=== PATIENT | female | born 1965 | race Caucasian/White ===

== ENCOUNTER 2016-06-20 10:37 | Day surgery (SDC) | payer OTHER ==
[2016-06-20 10:43] VITALS: BMI 26.6
--- NOTE | 2016-06-20 11:01 | PDOC ---
History of Present Illness - General Chief Complaint: Pain, Acute Stated Complaint: ABD PAIN Time Seen by Provider: 06/20/16 10:38 History Source: Patient Exam Limitations: No Limitations - History of Present Illness Initial Comments: 06/20/16 10:56 This pt is a 50 yo F with no significant past medical who presents to the ER with a complaint of abdominal pain. She states her symptoms began yesterday afternoon. Pain described as shooting, located in the Right lower abdomen. Pain began while doing noting in particular. No exacerbating or alleviating factors She has not had symptoms like this in the past. Pain was initially intermittent, now it is more constant Pt denies diarrhea, pt has irregular bowel habits, passing flatus She denies dysuria, flank pain No history of fibroids or cysts ROS: GENERAL/CONSTITUTIONAL: No: fever, chills, weakness, loss of appetite. HEAD, EYES, EARS, NOSE AND THROAT: No: change in vision, ear pain, discharge, sore throat, throat swelling. CARDIOVASCULAR: No: chest pain, lightheadedness, palpitations, syncope RESPIRATORY: No: cough, shortness of breath, wheezing, hemoptysis, stridor. GASTROINTESTINAL: (+) abdominal pain No: nausea, vomiting, diarrhea GENITOURINARY: No: dysuria, hematuria, frequency, urgency, flank pain. MUSCULOSKELETAL: No: back pain, neck pain, joint pain, muscle swelling or pain SKIN: No: lesions, pallor, rash or easy bruising. NEUROLOGIC: No: headache, vertigo, paresthesias, weakness ENDOCRINE: No: unexplained weight gain or loss HEMATOLOGIC/LYMPHATIC: No: anemia, easy bleeding, swelling nodes. PHYSICAL EXAM GENERAL: The patient is in no acute distress. HEAD: Normal with no signs of trauma. EYES: PERRLA, EOMI, sclera anicteric, conjunctiva clear. ENT: Ears normal, nares patent, oropharynx clear without exudates. Moist mucous membranes. NECK: Normal range of motion, supple without lymphadenopathy, JVD, or masses. LUNGS: Breath sounds equal, clear to auscultation bilaterally. No wheezes, and no crackles. HEART:Regular rate and rhythm, normal S1 and S2 without murmur, rub or gallop. ABDOMEN: (+) tender to palpation right abdomen, Soft, normoactive bowel sounds. No guarding, no rebound. EXTREMITIES: Normal range of motion, no edema. No clubbing or cyanosis. No erythema, or tenderness. NEUROLOGICAL: Cranial nerves II through XII grossly intact. Normal speech. No focal neurological deficits. MUSCULOSKELETAL: Back non-tender to palpation, no CVA tenderness SKIN: Warm, Dry, normal turgor, no rashes or lesions noted. 06/20/16 11:02 Past History - Past Medical History Allergies/Adverse Reactions: Allergies Allergy/AdvReac Type Severity Reaction Status Date / Time No Known Allergies Allergy Verified 06/20/16 10:38 Home Medications: Ambulatory Orders NK [No Known Home Medication] 06/20/16 Other medical history: DENIES - Psycho/Social/Smoking Cessation Hx Suicidal Ideation: No Smoking History: Never smoked Have you smoked in the past 12 months: No Hx Alcohol Use: Yes Drug/Substance Use Hx: No Substance Use Type: Alcohol *Physical Exam - Vital Signs Last Vital Signs Temp Pulse Resp BP Pulse Ox 98.2 F 61 18 134/93 100 06/20/16 10:38 06/20/16 10:38 06/20/16 10:38 06/20/16 10:38 06/20/16 10:38 Heart Score/ECG Review #1 ECG reviewed & interpreted by me at: 14:46 General ECG Interpretation: Sinus Rhythm, Normal Rate, Normal Intervals, No acute ischemic changes ED Treatment Course - LABORATORY CBC & Chemistry Diagram: 06/20/16 11:00 06/20/16 11:00 Medical Decision Making - Medical Decision Making 06/20/16 11:06 DD: Appendicitis, colitis, enteritis, gastroenteritis, obstruction, cholecystitis, gastritis, gastric ulcer, diverticulitis Will do labs Will do CT abd and pelvis Will re assess 06/20/16 12:12 Laboratory Tests 06/20/16 11:00 WBC 5.7 Hgb 12.9 Hct 38.8 Plt Count 237 Laboratory Tests 06/20/16 06/20/16 11:00 11:00 Sodium 132 L Potassium 4.0 Chloride 100 Carbon Dioxide 28 Anion Gap 4 L BUN 16 Creatinine 0.7 Random Glucose 110 H Urine Blood 1+ H Urine Nitrite Negative Ur Leukocyte Esterase 2+ H 06/20/16 12:13 06/20/16 12:57 Laboratory Tests 06/20/16 11:00 Urine WBC 5-10 Ur Epithelial Cells Few Urine Bacteria Moderate Possible UTI Will prescribed Macrobid Awaiting CT 06/20/16 14:11 CT: Acute appendicitis Case reviewed with Dr Saldaña Will admit to his service Or: 3:30 - 4:[address] also shows thickened endometrium and renal hypodensities both of which require additional work up with US I have given pt a copy of her CT scan with these areas circled Once she is out of the hospital, pt can 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
[2016-06-20 11:25] LABS: BASOPHIL 0.7 % (0-2.0); EOSINOPHIL 2.3 % (0-4.5); MCH 27.2 pg (25.7-33.7); MCHC 33.1 g/dl (32.0-36.0); MEAN CELL VOLUME 82.2 fl (80-96); MEAN PLT VOLUME 8.1 fl (7.5-11.1); NEUTROPHILS 58.4 % (42.8-82.8); PLATELET COUNT 237 K/MM3 (134-434); RDW 11.9 % (11.6-15.6); WHITE BLOOD COUNT 5.7 K/mm3 (4.0-10.0)
[2016-06-20 11:26] LABS: URINE APPEARANCE Clear; URINE BILIRUBIN Negative (NEGATIVE); URINE GLUCOSE (UA) Negative (NEGATIVE); URINE KETONE Negative (NEGATIVE); URINE NITRITE Negative (NEGATIVE); URINE PROTEIN Trace (NEGATIVE); URINE UROBILINOGEN 1.0 E.U/dl (0.2-1.0)
[2016-06-20 11:36] LABS: ALBUMIN 4.3 g/dl (3.5-5.0); ALK PHOS 70 U/L (32-92); ANION GAP 4 (8-16); BILIRUBIN,TOTAL 0.8 mg/dl (0.2-1.0); CALCIUM 9.3 mg/dl (8.4-10.2); CO2 28 mmol/L (22-28); CREATININE 0.7 mg/dl (0.6-1.3); GLUCOSE,RANDOM 110 mg/dl (74-106); SGOT/AST 21 U/L (10-42); SGPT/ALT 15 U/L (10-40); TOT PROT 7.2 g/dl (6.4-8.3); URINE BLOOD 1+ (NEGATIVE); URINE COLOR YELLOW; URINE LEUK ESTERASE 2+ (NEGATIVE)
[2016-06-20 12:40] LABS: URINE BACTERIA MODERATE /hpf (NEGATIVE); URINE HYALINE CAST 0-3 /lpf
[2016-06-20] MEDS ORDERED: PIPERACILLIN/TAZOB 3.375 GM/50 ML PRE-DOCKED IVPB ONE (14:20)
[2016-06-20] MEDS ORDERED: PIPERACILLIN/TAZOBACTAM 3.375 GM VIAL IVPB ONE (14:26)
[2016-06-20] MEDS ORDERED: BUPIVACAINE HCL 0.25% 125 MG/50 ML VIAL ONE (14:35)
[2016-06-20 15:07] LABS: ACTIVATED PTT 31.9 SECONDS (24.0-38.9)
[2016-06-20 15:11] LABS: INR 1.12 (0.82-1.09); PROTHROMBIN TIME (PATIENT) 12.5 SEC (10.2-13.0)
[2016-06-20] MEDS ORDERED: PROPOFOL 20 ML ONE (15:27)
[2016-06-20] MEDS ORDERED: MIDAZOLAM HCL 2 MG/2 ML SINGLE DOSE VIAL ONE (15:27)
[2016-06-20] MEDS ORDERED: SUCCINYLCHOLINE CHLORIDE 200 MG/10 ML VIAL ONE (15:27)
[2016-06-20] MEDS ORDERED: oxyCODONE HCL 5 MG TABLET PO PRN (15:42)
[2016-06-20] MEDS ORDERED: PROMETHAZINE HCL 25 MG/1 ML VIAL IVPUSH PRN (15:42)
[2016-06-20] MEDS ORDERED: ONDANSETRON 4 MG/2 ML VIAL IVPUSH PRN (15:42)
[2016-06-20] MEDS ORDERED: LACTATED RINGERS SOLUTION 1,000 ML IV SCH (15:45)
[2016-06-20] MEDS ORDERED: ONDANSETRON 4 MG/2 ML VIAL ONE ×2 (16:40)
[2016-06-20] MEDS ORDERED: DEXAMETHASONE SOD PHOSPHATE 4 MG/1 ML VIAL ONE ×2 (16:40)
[2016-06-20] MEDS ORDERED: ROCURONIUM BROMIDE 50 MG/5 ML VIAL ONE (16:41)
[2016-06-20] MEDS ORDERED: NEOSTIGMINE METHYLSULFATE 0.5 MG/ML - 10 ML MDV ONE (17:00)
[2016-06-20] MEDS ORDERED: GLYCOPYRROLATE 0.2 MG/1 ML VIAL ONE ×2 (17:01)
[2016-06-20] MEDS ORDERED: BUPIVACAINE HCL/PF 2.5 MG/ML - 30 ML VIAL IJ ONE (17:03)
[2016-06-20] MEDS ORDERED: KETOROLAC TROMETHAMINE 30 MG/1 ML VIAL ONE (17:03)
--- NOTE | 2016-06-20 17:28 | HP ---
Satellite [facility] - Chief Complaint History of Present Illness: 50 yr old female presents with 24 hx of RLQ abdominal pain associated with nausea History Source: Patient Limitations to Obtaining History: No Limitations - Past Medical History Allergies/Adverse Reactions: Allergies Allergy/AdvReac Type Severity Reaction Status Date / Time No Known Allergies Allergy Verified 06/20/16 10:38 - Current Medications Current Medications: Home Medications Medication Instructions Recorded NK [No Known Home Medication] 06/20/16 Satellite Physical Exam - Physical Examination Vital Signs: Vital Signs Period Temp Pulse Resp BP Sys/Brunson Pulse Ox Last 24 Hr 98.2 F-98.4 F 61-69 16-18 119-134/77-93 97-100 General Appearance: Well Nourished, Well Developed, Alert & Oriented x3 ENT: Clear, No masses Lung: Clear to auscultation Heart: Regular rate & rhythm Abdomen: Soft, Other (RLQ tenderness to palpation with guarding) Extremities: No edema, No tenderness/swelling Satellite Impression/Plan - Impression/Plan Impression: acute appendicittis Operative Procedure: laparoscopic appendectomy Date to be Performed: 06/20/16
--- NOTE | 2016-06-20 17:30 | OP ---
Operative Note - Note: Operative Date: 06/20/16 Pre-Operative Diagnosis: acute appendicittis Operation: lap. appendectomy Findings: early appendicittis Post-Operative Diagnosis: Same as Pre-op Surgeon: Wild Lerma Anesthesia: General Specimens Removed: appendix Estimated Blood Loss (mls): 5
[2016-06-20] MEDS ORDERED: KETOROLAC TROMETHAMINE 15 MG/ML VIAL IVPUSH PRN (17:34)
[2016-06-20] MEDS ORDERED: ACETAMINOPHEN WITH CODEINE 300MG/30MG TABLET PO PRN (17:35)
[2016-06-21 05:48] VITALS: TEMP 98.6
--- NOTE | 2016-06-21 06:14 | OP ---
DATE OF OPERATION: 06/20/2016 PREOPERATIVE DIAGNOSIS: Acute appendicitis. POSTOPERATIVE DIAGNOSIS: Acute appendicitis. PROCEDURE: Laparoscopic appendectomy. SURGEON: Wild Lerma MD ANESTHESIA: . COMPLICATIONS: None. BLEEDING: Minimal. CONDITION: Patient tolerated procedure well. INDICATIONS: This is a 50-year-old female who presents to the emergency room with a 24-hour history of right lower quadrant pain. She, otherwise, is healthy with no previous medical history of any significance. PAST MEDICAL HISTORY: Significant for reconstructive surgery including abdominoplasty and breast reconstruction. Physical exam was consistent with findings of acute appendicitis. A CT scan of the abdomen was performed, which confirmed the diagnosis of acute appendicitis. The patient was referred for surgical evaluation. My findings and assessment were consistent with the diagnosis, and discussion of treatment was undertaken with the patient. Informed consent was obtained after full exposition of the risks and benefits and potential complications. She agreed to proceed as planned. DESCRIPTION OF PROCEDURE: In the operating room, she was placed in a supine position. She had received previous IV antibiotics. She underwent induction of general anesthesia without complication. She was then prepped and draped in the usual sterile fashion. A time-out was observed at this point, and the operation was begun with a periumbilical incision, which was carried through the skin and subcutaneous tissue in standard fashion. Once complete, a Pradhan approach was performed to obtain access to the peritoneal cavity without any difficulty. With a 12-mm port in place and this was flushed with a pressure of 15 mmHg then a total of two 5-mm ports were introduced along the Pfannenstiel line, one in the suprapubic position and one in the left lower quadrant. The appendicitis was identified in a retrocecal position adhesed to the posterior wall of the cecum. It was then grasped and mobilized. Adhesions to the appendix were divided using LigaSure to expose the mesoappendix. The mesoappendix also was subsequently divided with LigaSure to skeletonize it to the base of the appendix. At this point then an Endo SHAN stapler purple cartridge was used and divided at its base near the cecal margin. There was no significant bleeding from the staple line over the mesoappendix. The appendix was placed in EndoCatch bag. There was no evidence of purulent fluid in the peritoneal cavity, although was suctioned and aspirated. After final check for hemostasis, the ports were removed under direct vision. The fascia at the umbilical port was then closed with 0 Vicryl sutures with interrupted fashion. All port sites were then closed with 4-0 Monocryl. Dermabond was applied, and the patient was then returned to the recovery room awake and in stable condition. She tolerated the procedure well. Dima [id number]
--- NOTE | 2016-06-21 12:23 | PN ---
Progress Note, Physician History of Present Illness: s/p lap appendectomy feeling well tolerating diet - Current Medication List Current Medications: Active Medications Acetaminophen/Codeine Phosphate (Tylenol # 3 -) 1 tab PO Q6H PRN PRN Reason: FEVER OR PAIN Fentanyl (Sublimaze Injection -) 50 mcg IVPUSH [id number] PRN PRN Reason: PAIN Stop: 06/23/16 15:43 Last Admin: 06/20/16 18:00 Dose: 50 mcg Lactated Ringer's (Lactated Ringers Solution) 1,000 mls @ 75 mls/hr IV ASDIR JOSE C Ketorolac Tromethamine (Toradol Injection -) 15 mg IVPUSH Q6H PRN PRN Reason: PAIN Stop: 06/25/16 17:33 Oxycodone HCl (Roxicodone -) 5 mg PO Q4H PRN PRN Reason: MILD PAIN - Objective Vital Signs: Vital Signs Temperature 98.6 F 06/21/16 05:46 Pulse Rate 64 06/21/16 05:46 Respiratory Rate 18 06/21/16 05:46 Blood Pressure 102/61 06/21/16 05:46 O2 Sat by Pulse Oximetry (%) 98 06/21/16 09:21 Labs: CBC, BMP 06/20/16 11:00 06/20/16 11:00 INR, PTT INR 1.12 (0.82-1.09) 06/20/16 14:18 Problem List - Problems (1) Acute appendicitis Code(s): K35.80 - UNSPECIFIED ACUTE APPENDICITIS Qualifiers: Acute appendicitis type: unspecified acute appendicitis type Qualified Code(s): K35.80 - Unspecified acute appendicitis Assessment/Plan d/c home follow up in one week
--- NOTE | 2016-06-21 14:30 | EKG ---
Test Reason : Blood Pressure : / mmHG Vent. Rate : 067 BPM Atrial Rate : 067 BPM P-R Int : 150 ms QRS Dur : 084 ms QT Int : 424 ms P-R-T Axes : 075 045 039 degrees QTc Int : 448 ms NORMAL SINUS RHYTHM NORMAL ECG NO PREVIOUS ECGS AVAILABLE Confirmed by ABIGAIL SCHILLING MD ([id number]) on 06/21/2016 2:29:50 PM Referred By: SUNITA PIZARRO Confirmed By:ABIGAIL SCHILLING MD
[2016-06-21 15:53] VITALS: BP 110/58; PULSE 80
--- NOTE | 2016-06-24 11:50 | PATH ---
Surgical Pathology Report Patient Name: BALAJI VASQUEZ [facility]. Rec. #: [id number] /Age/Gender: 1965 (Age: 50) / F Account: [id number] Location: [facility] AMBULATORY Taken: 06/20/2016 Received: 06/20/2016 Reported: 06/24/2016 Physicians: Wild Lerma M.D. Specimen(s) Received APPENDIX Clinical History Acute appendicitis Final Diagnosis APPENDIX, APPENDECTOMY: ACUTE APPENDICITIS AND PERIAPPENDICITIS. Electronically Signed Sid Vasquez M.D. Gross Description Received in formalin, labeled "appendix," is a 6 cm. in length vermiform appendix with a stapled margin of resection and moderate attached fat. The serosa is christopher-holley and smooth. Sectioning reveals possible diverticuli at the distal tip of the appendix. The wall of the appendix averages 0.2 cm. in thickness. Gathering Machine Setter sections are submitted in two cassettes. 06/23/2016 [email or web address]/23/2016
== END 2016-06-21 16:30 | disposition home or self-care (01) ==
LOC: FER 10:37 → FASU 14:41 → FM/S 17:32 → FASU 06-21 16:30
PROVIDERS: ATTEND Surgery
PROC: 0DTJ4ZZ Resection of Appendix, Percutaneous Endoscopic Approach (ICD-10-PCS; principal; 2016-06-20 16:20)
DX: K35.80 Unspecified acute appendicitis (principal)
CPT/HCPCS: 36415; 71010-TC; 74177-TC; 80053; 81003; 81015; 84703; 85025; 85610; 85730; 86850; 86900; 86901; 87086; 88304-TC; 93005; 94760; 99284-25

== ENCOUNTER 2016-08-28 10:10 | Emergency (ER) | payer OTHER ==
[2016-08-28 10:18] VITALS: BP 102/67; PULSE 90; TEMP 98.7; BMI 26.1
--- NOTE | 2016-08-28 10:31 | PDOC ---
History of Present Illness - General Stated Complaint: FEVER AT HOME Time Seen by Provider: 08/28/16 10:21 History Source: Patient, Old Records Exam Limitations: No Limitations - History of Present Illness Initial Comments: 08/28/16 10:26 History presents the emergency Department with complaints of 2 day history of fever at home. The patient states that her temperature was 102 this morning. She took Advil at 9 AM. The patient is currently afebrile in the emergency department. She has no other complaints other than loss of appetite. She denies nausea, vomiting, abdominal pain, diarrhea, constipation, URI symptoms, complaints, sore throat, ear pain. She has no sick contacts at home. Past History - Past Medical History Allergies/Adverse Reactions: Allergies Allergy/AdvReac Type Severity Reaction Status Date / Time No Known Allergies Allergy Verified 08/28/16 10:15 Home Medications: Ambulatory Orders Ibuprofen [Advil -] 400 mg PO QID PRN 08/28/16 - Surgical History Appendectomy: Yes - Psycho/Social/Smoking Cessation Hx Suicidal Ideation: No Smoking History: Never smoked Have you smoked in the past 12 months: No Information on smoking cessation initiated: No Hx Alcohol Use: No Drug/Substance Use Hx: No Substance Use Type: Alcohol Review of Systems - Review of Systems Able to Perform ROS?: Yes Is the patient limited Italian proficient: No Constitutional: Yes: Fever, Loss of Appetite HEENTM: No: Symptoms Reported Respiratory: No: Symptoms reported Cardiac (ROS): No: Symptoms Reported ABD/GI: No: Symptoms Reported : No: Symptoms Reported Musculoskeletal: No: Symptoms Reported Integumentary: No: Symptoms Reported Neurological: No: Symptoms reported *Physical Exam - Vital Signs Last Vital Signs Temp Pulse Resp BP Pulse Ox 98.7 F 90 18 102/67 96 08/28/16 10:10 08/28/16 10:10 08/28/16 10:10 08/28/16 10:10 08/28/16 10:10 - Physical Exam Comments: 08/28/16 10:27 GENERAL: Well developed, well nourished. Awake and alert. No acute distress. HEENT: Normocephalic, atraumatic. PERRLA, EOMI. No conjunctival pallor. Sclera are non- icteric. Moist mucous membranes. Oropharynx is clear without erythema or exudates. NECK: Supple. Full ROM. No JVD. No lymphadenopathy. CARDIOVASCULAR: Regular rate and rhythm. No murmurs, rubs, or gallops. Distal pulses are 2+ and symmetric. PULMONARY: No evidence of respiratory distress. Lungs clear to auscultation bilaterally. No wheezing, rales or rhonchi. ABDOMINAL: Soft. Non-tender. Non-distended. No rebound or guarding. No organomegaly. Normoactive bowel sounds. MUSCULOSKELETAL Normal range of motion at all joints. No bony deformities or tenderness. No CVA tenderness. EXTREMITIES: No cyanosis. No clubbing. No edema. No calf tenderness. SKIN: Warm and dry. Normal capillary refill. No rashes. No jaundice. NEUROLOGICAL: Alert, awake, appropriate. Cranial nerves 2-12 intact. Grossly non-focal exam. PSYCHIATRIC: Cooperative. Good eye contact. Appropriate mood and affect. Medical Decision Making - Medical Decision Making 08/28/16 10:28 50-year-old female with no significant past medical history presents the emergency Department with complaints of 2 day history of fever and loss of appetite at home. She is well-appearing and is afebrile in the emergency department with normal vital signs. Differential diagnosis includes but is not limited to: Viral syndrome. The plan is to discharge the patient home. She may alternate Tylenol and Motrin as needed for fever. I have advised her to also continue to keep well-hydrated and follow-up with her primary care physician within the next week. I have also advised her to return to the emergency department if her symptoms persist, worsen, or new symptoms arise. *DC/Admit/Observation/Transfer Diagnosis at time of Disposition: Fever - Discharge Dispostion Disposition: HOME Condition at time of disposition: Stable Admit: No - Patient Instructions Printed Discharge Instructions: DI for Viral Syndrome Additional Instructions: You may continue to take alternating doses of Tylenol and ibuprofen as needed for fever. Please make she maintain hydration with fluids. Please follow-up with your primary care physician within the next week and return to the emergency department if your symptoms persist, worsen, or new symptoms arise.
== END 2016-08-28 10:50 | disposition home or self-care (01) ==
LOC: FER 10:10
DX: R50.9 Fever, unspecified (principal)
CPT/HCPCS: 99283-25; 99284-25

== ENCOUNTER 2016-08-29 09:43 | Emergency (ER) | payer OTHER ==
[2016-08-29 09:59] VITALS: BMI 26.1
[2016-08-29] MEDS ORDERED: SODIUM CHLORIDE 1,000 ML IV STA (10:20)
[2016-08-29] MEDS ORDERED: ACETAMINOPHEN 325 MG TABLET (FP) PO ONE (10:20)
[2016-08-29] MEDS ORDERED: ACETAMINOPHEN 325 MG TABLET (FP) ONE (10:30)
--- NOTE | 2016-08-29 10:40 | PDOC ---
History of Present Illness - General Chief Complaint: Pain, Acute Stated Complaint: FEVER FOR 2 DAYS EPIGASTRIC PAIN Time Seen by Provider: 08/29/16 10:00 History Source: Patient Exam Limitations: No Limitations - History of Present Illness Initial Comments: 08/29/16 10:37 50-year-old female with past medical history of appendectomy in June 2016 presents with fever and upper abdominal pain. The patient has been endorsing 3 days of fever with MAXIMUM TEMPERATURE 102. Was seen yesterday and diagnosed with viral syndrome. Yesterday night, patient developed some epigastric pain worsened with eating. She had some nausea but denies any vomiting, diarrhea, cough. Denies sick contacts or recent travels. Came into the ED for further evaluation. Past History - Past Medical History Allergies/Adverse Reactions: Allergies Allergy/AdvReac Type Severity Reaction Status Date / Time No Known Allergies Allergy Verified 08/29/16 09:59 Home Medications: Ambulatory Orders Ciprofloxacin [Cipro -] 500 mg PO Q12H #28 tablet 08/29/16 Metronidazole [Flagyl -] 500 mg PO TID #42 tablet 08/29/16 - Surgical History Appendectomy: Yes - Psycho/Social/Smoking Cessation Hx Anxiety: No Suicidal Ideation: No Smoking History: Never smoked Have you smoked in the past 12 months: No Information on smoking cessation initiated: No Hx Alcohol Use: Yes (social) Drug/Substance Use Hx: No Substance Use Type: Alcohol Review of Systems - Review of Systems Able to Perform ROS?: Yes Comments:: 08/29/16 10:38 GENERAL/CONSTITUTIONAL: +fever. No weakness. HEAD, EYES, EARS, NOSE AND THROAT: No change in vision. No ear pain or discharge. No sore throat. CARDIOVASCULAR: No chest pain or shortness of breath. RESPIRATORY: No cough, wheezing, or hemoptysis. GASTROINTESTINAL: +abdominal pain, nausea. No vomiting, diarrhea, or decreased PO intolerance. GENITOURINARY: No dysuria, frequency, or change in urination. MUSCULOSKELETAL: No joint or muscle swelling or pain. No neck or back pain. SKIN: No rash NEUROLOGIC: No headache, vertigo, loss of consciousness, or change in strength/ sensation. ENDOCRINE: No increased thirst. No abnormal weight change. HEMATOLOGIC/LYMPHATIC: No anemia, easy bleeding, or history of blood clots. ALLERGIC/IMMUNOLOGIC: No hives or skin allergy. *Physical Exam - Vital Signs Last Vital Signs Temp Pulse Resp BP Pulse Ox 101.1 F H 97 H 16 115/74 97 08/29/16 09:45 08/29/16 09:45 08/29/16 09:45 08/29/16 10:36 08/29/16 09:45 - Physical Exam Comments: 08/29/16 10:39 GENERAL: Awake, alert, and fully oriented, in no acute distress. HEAD: No signs of trauma EYES: PERRLA, EOMI, sclera anicteric, conjunctiva clear ENT: Auricles normal inspection, hearing grossly normal, nares patent, oropharynx clear without exudates. NECK: Normal ROM, supple, no lymphadenopathy, JVD, or masses LUNGS: Breath sounds equal, clear to auscultation bilaterally. No wheezes, and no crackles HEART: Regular rate and rhythm, normal S1 and S2, no murmurs, rubs or gallops ABDOMEN: +RUQ and epigastric TTP. Bueno sign positive. Soft, normoactive bowel sounds. No guarding, no rebound. No masses EXTREMITIES: Normal range of motion, no edema. No clubbing or cyanosis. No cords, erythema, or tenderness NEUROLOGICAL: Cranial nerves II through XII grossly intact. Normal speech, normal gait SKIN: Warm, Dry, normal turgor, no rashes or lesions noted. Heart Score/ECG Review #1 ECG reviewed & interpreted by me at: 10:50 08/29/16 11:55 NSR 85, TWI III, avF, nonspecific T wave flattening V4-V6, no std/darby, QTC 445 msec, normal axis, QTC 445 msec ED Treatment Course - LABORATORY CBC & Chemistry Diagram: 08/29/16 10:25 08/29/16 10:25 - RADIOLOGY Radiology Studies Ordered: Category Date Time Status ABDOMEN US -LIMITED [US] Stat Ultrasound 08/29/16 10:20 Ordered - Medications Given in the ED: ED Medications Discontinued Medications Generic Name Dose Route Start Last Admin Trade Name Freq PRN Reason Stop Dose Admin Acetaminophen 650 mg 08/29/16 10:20 08/29/16 10:35 Tylenol - PO 08/29/16 10:21 650 mg ONCE ONE Administration Medical Decision Making - Medical Decision Making 08/29/16 10:39 Vital Signs Temp Pulse Resp BP Pulse Ox 101.1 F H 97 H 16 115/74 97 08/29/16 09:45 08/29/16 09:45 08/29/16 09:45 08/29/16 10:36 08/29/16 09:45 50-year-old female patient with fever and nausea and right upper quadrant pain concerning for acute cholecystitis. We'll need to obtain labs, right quadrant ultrasound and reassess. 08/29/16 13:39 Ultrasound reviewed. No acute findings. CAT scan shows findings suspicious for right-sided colitis and possible terminal ileitis. CBC, BMP 08/29/16 10:25 08/29/16 10:25 CMP Sodium 135 mmol/L (136-145) L 08/29/16 10:25 Potassium 3.7 mmol/L (3.5-5.1) 08/29/16 10:25 Chloride 99 mmol/L (98-107) 08/29/16 10:25 Carbon Dioxide 25 mmol/L (22-28) 08/29/16 10:25 Anion Gap 11 (8-16) 08/29/16 10:25 BUN 18 mg/dl (7-18) 08/29/16 10:25 Creatinine 0.9 mg/dl (0.6-1.3) D 08/29/16 10:25 Creat Clearance w eGFR > 60 (>60) 08/29/16 10:25 Random Glucose 102 mg/dl (74-106) 08/29/16 10:25 Calcium 9.1 mg/dl (8.4-10.2) 08/29/16 10:25 Total Bilirubin 1.3 mg/dl (0.2-1.0) H D 08/29/16 10:25 AST 23 U/L (10-42) 08/29/16 10:25 ALT 18 U/L (10-40) 08/29/16 10:25 Alkaline Phosphatase 58 U/L (32-92) 08/29/16 10:25 Total Protein 7.2 g/dl (6.4-8.3) 08/29/16 10:25 Albumin 4.0 g/dl (3.5-5.0) 08/29/16 10:25 Lipase 19 U/L (22-51) L 08/29/16 10:25 Serum , Qual Cancelled 08/29/16 10:25 Urine Test Results Urine Color Yellow 08/29/16 10:25 Urine Appearance Sl cloudy 08/29/16 10:25 Urine pH 5.5 (4.5-8) 08/29/16 10:25 Ur Specific [place] >= 1.030 (1.005-1.025) H 08/29/16 10:25 Urine Protein 1+ (NEGATIVE) H 08/29/16 10:25 Urine Glucose (UA) Negative (NEGATIVE) 08/29/16 10:25 Urine Ketones 4+ (NEGATIVE) H 08/29/16 10:25 Urine Blood 3+ (NEGATIVE) H 08/29/16 10:25 Urine Nitrite Negative (NEGATIVE) 08/29/16 10:25 Urine Bilirubin 2+ (NEGATIVE) H 08/29/16 10:25 Ur Leukocyte Esterase Trace (NEGATIVE) 08/29/16 10:25 Patient reports that she has a strong family history of Crohn's disease. Given these findings, we'll treat as potentially infectious colitis with ciprofloxacin and Flagyl. However, I advised the patient that Crohn's disease or also of colitis has not been ruled out. She will need a colonoscopy to further investigate this. Patient verbalizes understanding and states that she will follow-up with a gastrology. She has one from a previous visit for stomach ulcers. Return precautions given. Patient verbalizes understanding and agrees with plan. I discussed the physical exam findings, ancillary test results and final diagnoses with the patient. I answered all of the patient's questions. The patient was satisfied with the care received and felt comfortable with the discharge plan and treatment plan. The patient will call their primary care physician within 24 hours to arrange follow-up and will return to the Emergency Department with any new, persistant or worsening symptoms. *DC/Admit/Observation/Transfer Diagnosis at time of Disposition: Colitis - Discharge Dispostion Disposition: HOME Condition at time of disposition: Fair Admit: No - Prescriptions Prescriptions: Ciprofloxacin [Cipro -] 500 mg PO Q12H #28 tablet Metronidazole [Flagyl -] 500 mg PO TID #42 tablet - Referrals Referrals: Brice Hodges MD [Staff Physician] - - Patient Instructions Printed Discharge Instructions: DI for Colitis Additional Instructions: Please complete the antibiotics as prescribed. Take ibuprofen and/or tylenol as directed over the counter. It is very important that you follow up with a geography instructor. You will likely need a colonoscopy to evaluate for potentially crohn's disease. Call to schedule an appointment. If you do not have one, you may make one with our hospital. If you start noticing blood diarrhea or having uncontrollable abdominal pain, please return to the ER.
[2016-08-29 11:00] LABS: BASOPHIL 0.3 % (0-2.0); EOSINOPHIL 0.1 % (0-4.5); MCH 27.1 pg (25.7-33.7); MCHC 33.4 g/dl (32.0-36.0); MEAN CELL VOLUME 81.1 fl (80-96); MEAN PLT VOLUME 8.1 fl (7.5-11.1); NEUTROPHILS 79.4 % (42.8-82.8); PLATELET COUNT 223 K/MM3 (134-434); RDW 11.9 % (11.6-15.6); WHITE BLOOD COUNT 7.7 K/mm3 (4.0-10.8)
[2016-08-29 11:01] LABS: PH,URINE 5.5 (4.5-8); URINE BILIRUBIN 2+ (NEGATIVE); URINE GLUCOSE (UA) Negative (NEGATIVE); URINE KETONE 4+ (NEGATIVE); URINE LEUK ESTERASE Trace (NEGATIVE); URINE NITRITE Negative (NEGATIVE); URINE UROBILINOGEN 1.0 E.U/dl (0.2-1.0)
[2016-08-29 11:29] LABS: URINE APPEARANCE SL CLOUDY; URINE BLOOD 3+ (NEGATIVE); URINE PROTEIN 1+ (NEGATIVE)
[2016-08-29 11:30] LABS: URINE COLOR YELLOW
[2016-08-29 12:01] LABS: ALK PHOS 58 U/L (32-92); ANION GAP 11 (8-16); BILIRUBIN,TOTAL 1.3 mg/dl (0.2-1.0); CALCIUM 9.1 mg/dl (8.4-10.2); CO2 25 mmol/L (22-28); CREATININE 0.9 mg/dl (0.6-1.3); GLUCOSE,RANDOM 102 mg/dl (74-106); SGOT/AST 23 U/L (10-42); SGPT/ALT 18 U/L (10-40); TOT PROT 7.2 g/dl (6.4-8.3)
[2016-08-29] MEDS ORDERED: SODIUM CHLORIDE 1,000 ML IV SCH (13:00)
[2016-08-29] MEDS ORDERED: metroNIDAZOLE 250 MG TABLET PO ONE (13:38)
[2016-08-29] MEDS ORDERED: CIPROFLOXACIN 500 MG TABLET (RESTRICTED TO ID) PO ONE (13:38)
[2016-08-29] MEDS ORDERED: CIPROFLOXACIN 250 MG TABLET (RESTRICTED TO ID) PO ONE (13:45)
[2016-08-29] MEDS ORDERED: metroNIDAZOLE 250 MG TABLET ONE (13:45)
[2016-08-29 13:59] LABS: URINE BACTERIA RARE /hpf (NEGATIVE)
[2016-08-29 14:10] VITALS: BP 117/75; PULSE 75; TEMP 98
--- NOTE | 2016-08-29 16:53 | EKG ---
Test Reason : Blood Pressure : / mmHG Vent. Rate : 085 BPM Atrial Rate : 085 BPM P-R Int : 144 ms QRS Dur : 078 ms QT Int : 374 ms P-R-T Axes : 076 047 021 degrees QTc Int : 445 ms SINUS RHYTHM NONSPECIFIC ST AND T WAVE ABNORMALITY WHEN COMPARED WITH ECG OF 20-JUN-2016 14:42, NO SIGNIFICANT CHANGE WAS FOUND Confirmed by ABIGAIL SCHILLING MD ([id number]) on 08/29/2016 4:53:05 PM Referred By: SHUBHAM MCLAUGHLIN Confirmed By:ABIGAIL SCHILLING MD
== END 2016-08-29 14:11 | disposition home or self-care (01) ==
LOC: FER 09:43
PROC: 3E0337Z Introduction of Electrolytic and Water Balance Substance into Peripheral Vein, Percutaneous Approach (ICD-10-PCS; principal; 2016-08-29)
DX: K52.9 Noninfective gastroenteritis and colitis, unspecified (principal)
CPT/HCPCS: 36415; 74176; 76705-TC; 80053; 81003; 81015; 83690; 84703; 85025; 87086; 93005; 99283-25

== ENCOUNTER 2022-06-04 14:42 | Emergency (ER) | payer OTHER ==
[2022-06-04 14:53] VITALS: BP 149/78; PULSE 65; RESP 16; TEMP 98.9; BMI 28.3
[2022-06-04 16:33] LABS: ALBUMIN 4.5 g/dl (3.4-5.0); ALK PHOS 62 U/L (45-117); ANION GAP 7 MMOL/L (8-16); BILIRUBIN,TOTAL 0.7 mg/dl (0.2-1); CALCIUM 9.3 mg/dl (8.5-10); CHLORIDE 102 mmol/L (98-107); CO2 29 mmol/L (21-32); CREATININE 0.7 mg/dl (0.55-1.3); GLUCOSE,RANDOM 103 mg/dl (74-106); SGOT/AST 17 U/L (15-37); SGPT/ALT 17 U/L (13-61); SODIUM 138 mmol/L (136-145); TOT PROT 7.5 g/dl (6.4-8.2)
[2022-06-04 16:37] LABS: HEMATOCRIT 39.2 % (32.4-45.2); HEMOGLOBIN 14.3 G/dL (10.7-15.3); MCH 29.9 pg (25.7-33.7); MCHC 36.4 g/dl (32.0-36.0); MEAN CELL VOLUME 82.4 fl (80-96); MEAN PLT VOLUME 7.8 fl (7.5-11.1); PLATELET COUNT 260.9 10^3/uL (134-434); RBC 4.76 10^6/uL (3.60-5.2); RDW 14.5 % (11.6-15.6); WHITE BLOOD COUNT 4.9 10^3/uL (4.0-10.8)
[2022-06-04 19:54] LABS: PLATELET ESTIMATE ADEQUATE
== END 2022-06-04 17:11 | disposition home or self-care (01) ==
LOC: FER 14:42 → SUPCPDRO 14:42 → FER 17:11
DX: R07.9 Chest pain, unspecified (principal)
CPT/HCPCS: 36415; 71045-TC-FY; 80053; 84484; 85027; 93005; 99285-25

== ENCOUNTER 2023-04-09 08:02 | Day surgery (SDC) | payer OTHER ==
[2023-04-08 15:09] VITALS: BMI 80.1
[2023-04-09 09:37] VITALS: TEMP 98
[2023-04-09 09:52] VITALS: RESP 18
[2023-04-09 09:53] VITALS: BP 128/74; PULSE 75
== END 2023-04-09 10:16 | disposition home or self-care (01) ==
LOC: FASU-ENDO 08:02
PROVIDERS: ATTEND Internal Medicine Gastroenterology
PROC: 0DB68ZX Excision of Stomach, Via Natural or Artificial Opening Endoscopic, Diagnostic (ICD-10-PCS; 2023-04-09)
PROC: 0DB98ZX Excision of Duodenum, Via Natural or Artificial Opening Endoscopic, Diagnostic (ICD-10-PCS; principal; 2023-04-09 09:14)
DX: K29.50 Unspecified chronic gastritis without bleeding (principal); R10.13 Epigastric pain
CPT/HCPCS: 88305-TC; 88342-TC